=== PATIENT | male | born 1995 | race Caucasian/White ===

== ENCOUNTER 2019-10-01 00:41 | Emergency (ER) | payer BC | END 2019-10-01 00:58 | LOC: ERS 00:41 | DX: F10.129 Alcohol abuse with intoxication, unspecified (principal); F17.210 Nicotine dependence, cigarettes, uncomplicated | CPT/HCPCS: 99284 ==

== ENCOUNTER 2021-03-29 11:47 | Emergency (ER) | payer BC, SELFPAY | END 2021-03-29 13:14 | disposition home or self-care (01) | LOC: ERS 11:47 | DX: H61.22 Impacted cerumen, left ear (principal); I10 Essential (primary) hypertension; F17.210 Nicotine dependence, cigarettes, uncomplicated | CPT/HCPCS: 69209 ==